=== PATIENT | female | born 1970 | race Two or more races ===

== ENCOUNTER 2024-10-22 20:13 | Emergency (ER) | payer MEDICAID, SELFPAY ==
--- NOTE | 2024-10-22 20:16 | EKG_ITS ---
[facility] Test Date: 2024-10-22 Pat Name: Adriana Santos Department: Room: - Gender: Female Survey Superintendent: : 1970 Requested By: Abundio Cedeno Order Number: [id number] Reading MD: Abundio Cedeno Measurements Intervals [place] Rate: 76 P: 50 MD: 141 QRS: -26 QRSD: 85 T: 47 QT: 366 QTc: 413 Interpretive Statements SINUS RHYTHM POSSIBLE ANTERIOR MYOCARDIAL INFARCTION , OF INDETERMINATE AGE [30 ms Q WAVE IN V3/V4, OR R < 0.2 mV IN V4] No previous ECG available for comparison /[id number]/[email or web address]/[id number].pdf
[2024-10-22 20:32] VITALS: BP 137/83; PULSE 78; RESP 16; TEMP 37; O2SAT 97; BMI 31.2
--- NOTE | 2024-10-22 21:15 | XR_ITS ---
Examination: PA chest single view TECHNIQUE:: PA chest single view upright Date and time: October 26, 20240 hours INDICATIONS: Chest pain and shortness of breath today FINDINGS: Normal heart size Accentuation of bronchovascular markings No lobar pneumonia or pulmonary edema Moderate osteopenia IMPRESSION: Basilar bronchitis
--- NOTE | 2024-10-22 21:16 | PD.EDRME ---
Rapid Medical Screening Exam [facility] Arrival date/time: 10/22/24 20:13 54F with history of HTN and DM presents to ED with 1 hour of LUQ/epigastric/lower chest pain and SOB. Patient is more concerned about SOB. Patient states she's had GERD before and this feels similar, but worse. Patient denies URI symptoms. Chief Complaint: Shortness of Breath/Dyspnea Vital signs: Vital Signs Temperature 98.6 F 10/22/24 20:32 Pulse Rate 78 10/22/24 20:32 Respiratory Rate 16 10/22/24 20:32 Blood Pressure 137/83 H 10/22/24 20:32 Pulse Oximetry (%) 97 10/22/24 20:32 Oxygen Delivery Method Room Air 10/22/24 20:32
[2024-10-22] MEDS: FAMOTIDINE 20 MG TABLET 40 MG PO (21:45)
[2024-10-22] MEDS: MG HYD/AL HYD/SIME (Maalox Reg) SUSP 30 ML UDC PO (21:45)
[2024-10-22 21:53] LABS: Collection Type, Urine Clean Catch
[2024-10-22 21:58] LABS: Basophils # (Auto) 0.0 Thou/mm3 (0.0-0.2); Basophils % (Auto) 1 % (0-2.5); Eosinophils # (Auto) 0.3 Thou/mm3 (0.0-0.5); Eosinophils % (Auto) 6 % (0-10); Hematocrit 46.1 % (36.0-46.0); Hemoglobin 15.3 g/dL (12.0-16.0); Immature Granulocytes Auto 0.01 Thou/mm3 (0.00-0.00); Lymphocytes # (Auto) 3.1 Thou/mm3 (1.0-4.8); Lymphocytes % (Auto) 54 % (10-50); Mean Corpuscular HGB Conc 33.2 g/dl (31.0-37.0); Mean Corpuscular Hemoglobin 28.1 pg (25.0-35.0); Mean Corpuscular Volume 85 fL (80-100); Monocytes # (Auto) 0.4 Thou/mm3 (0.0-0.8); Monocytes % (Auto) 8 % (0-12); Neutrophils # (Auto) 1.9 Thou/mm3 (1.8-7.7); Neutrophils % (Auto) 32 % (37-80); Nucleated Red Blood Cell # 0.00 Thou/mm3 (0.00-0.00); Nucleated Red Blood Cell % 0 /100 WBC (0); Platelet Count 239 Thou/mm3 (140-440); RDW Standard Deviation 39.5 fL (36.4-46.3); Red Blood Count 5.44 Miln/mm3 (4.00-5.20); White Blood Count 5.8 Thou/mm3 (3.6-11.0)
[2024-10-22 22:02] LABS: Bilirubin,Urine Negative (Negative); Blood,Urine Negative (Negative); Clarity,Urine Clear (Clear/Hazy); Color,Urine Colorless (Lt Yel-Yel); Culture Indicated,Urine Not Indicated; Glucose, Urine 4+ (Negative); Ketones,Urine Negative (Negative); Leukocyte Esterase,Urine Negative (Negative); Nitrite,Urine Negative (Negative); PH,Urine 7.5 (5.0-7.0); Protein,Urine Negative (Neg - Trace); RBC,Urine 1 /hpf (0-3); Specific Gravity,Urine 1.039 (1.001-1.035); Squamous Epithelial Cell,Urine 1 /hpf (0-5); Urobilinogen,Urine Negative mg/dL (0.0-1.0); WBC,Urine < 1 /hpf (0-5)
[2024-10-22 22:09] LABS: B-Type Natriuretic Peptide < 20 pg/mL (0-100)
[2024-10-22 22:10] LABS: Alanine Aminotransferase 27 U/L (10-49); Albumin, Serum 3.9 gm/dL (3.5-5.0); Albumin/Globulin Ratio 1.5 (1.2-2.2); Alkaline Phosphatase 192 U/L (46-116); Anion Gap 7 (7-16); Aspartate Amino Transferase 24 U/L (0-34); BUN/Creatinine Ratio 15 Ratio (12-20); Bilirubin,Total 0.5 mg/dL (0.3-1.2); Blood Urea Nitrogen 12 mg/dL (9-23); Calcium 9.6 mg/dL (8.3-10.6); Calcium (Corrected) 9.7 mg/dL (8.5-10.1); Carbon Dioxide 27.1 mMol/L (20.0-31.0); Chloride 102 mMol/L (98-107); Creatinine (Component) 0.8 mg/dL (0.6-1.3); Estimated Creatinine Clearance 73.2 mL/min (>60); Globulin 2.6 gm/dL (2.3-3.5); Glucose 371 mg/dL (74-106); Lipase 33 U/L (12-53); Magnesium 2.0 mg/dL (1.6-2.6); Osmolality,Calculated 286 (275-295); Potassium 4.2 mMol/L (3.4-5.1); Sodium 136 mMol/L (136-145); Total Protein 6.5 gm/dL (5.7-8.2); Troponin I < 0.002 ng/mL (0.0-0.045); eGFR > 60 See Note
[2024-10-22 22:29] LABS: INR 0.9 (0.9-1.3); Partial Thromboplastin Time 24.6 Seconds (22.0-36.0); Prothrombin Time 10.1 Seconds (9.0-12.2)
[2024-10-22 22:55] VITALS: BP 119/77; PULSE 71; RESP 16; TEMP 36.7; O2SAT 95
--- NOTE | 2024-10-23 00:08 | PD.EDABDPN ---
ED Abdominal Pain RME/HPI General Chief Complaint: Shortness of Breath/Dyspnea Stated complaint: SOB last Hour/abd pain/CP Arrival date/time: 10/22/24 20:13 RME / HPI RME / HPI narrative: 10/22/24 20:13 54F with history of HTN and DM presents to ED with 1 hour of LUQ/epigastric/lower chest pain and SOB. Patient is more concerned about SOB. Patient states she's had GERD before and this feels similar, but worse. Patient denies URI symptoms. DR. BOO MAIN ED EVALUATION: 54 y/o female with Hx of Type II DM and HTN presents with LUQ and epigastric abdominal pain with chest pain x 1 day. Patient also reports some cough. No other concerns or complaints expressed at this time. Related Data Previous Rx's ?Medication ?Instructions ?Recorded pantoprazole 40 mg tablet,delayed 40 mg PO QDAY #30 tabs 10/23/24 release (Protonix) Allergies Allergy/AdvReac Type Severity Reaction Status Date / Time No Known Allergies Allergy Verified 10/22/24 20:14 Review of Systems Review of Systems Systems Reviewed: All systems reviewed, normal except as documented Past Medical History Past Medical History CARDIAC: Positive Hypertension ENDOCRINE: Positive Diabetes Mellitus Type 2 Social History SMOKING STATUS: Never smoker ED Exam Narrative Physical exam: Generally patient is alert in no obvious distress heart regular rate and rhythm, lungs clear to auscultation equal bilaterally, abdomen soft bowel sounds present nondistended very mild epigastric abdominal tenderness without rebound. No right upper quadrant abdominal tenderness. Neurologic exam no focal motor or sensory deficits cranial nerves II through XII gross intact. Skin is cool and dry. Extremities show no edema. Course Course Course Narrative: CXR is ordered for determining the etiology of shortness of breath. Quality Measures none Orders Category Date Time Status EKG (ED ONLY) *Do not use* NOW Care 10/22/24 20:16 Completed EKG (ED Only) Stat Exams 10/22/24 20:16 Draft XR chest 1V portable Stat Exams 10/22/24 21:15 Completed B-Type Natriuretic Peptide Stat Lab 10/22/24 21:40 Completed CBC Stat Lab 10/22/24 21:40 Completed Comprehensive Metabolic Panel Stat Lab 10/22/24 21:40 Completed Lipase Stat Lab 10/22/24 21:40 Completed Magnesium Stat Lab 10/22/24 21:40 Completed Partial Thromboplastin Time Stat Lab 10/22/24 21:40 Completed Prothrombin Time with INR Stat Lab 10/22/24 21:40 Completed Troponin I Stat Lab 10/22/24 21:40 Completed UA, C/S IF [Urinalysis, C/S if Indicated] Stat Lab 10/22/24 21:34 Completed Aspirin Med 10/22/24 21:15 Discontinued 325 mg PO X1 ONE Famotidine [Pepcid] Med 10/22/24 21:15 Discontinued 40 mg PO X1 ONE mg Hyd/Al Hyd/Anshul Susp [Maalox Susp] Med 10/22/24 21:15 Discontinued 30 ml PO X1 ONE Vital Signs Vital signs: Vital Signs Temperature 98.6 F 10/22/24 20:32 Pulse Rate 78 10/22/24 20:32 Respiratory Rate 16 10/22/24 20:32 Blood Pressure 137/83 H 10/22/24 20:32 Pulse Oximetry (%) 97 10/22/24 20:32 Oxygen Delivery Method Room Air 10/22/24 20:32 Abdominal Pain MDM MDM Narrative MDM Narrative:: Scribe Attestation: I, Gregoria Wheat, am scribing for and in the presence of Dr. Boo. Provider Notation: Although this document has been carefully reviewed, there may still be some phonetic and other typographical errors.? These errors are purely grammatical due to imperfections in the software program and should not be construed in any way to? compromise the substance of the patient's medical care during this visit. I interpreted all labs. Cardiac workup is unremarkable. Troponin is not elevated. EKG is nonischemic. Chest x-ray is normal. Patient received a GI cocktail and Pepcid here in the emergency room with benefit. She will be discharged on Protonix to be taken as prescribed. Avoid hot spicy greasy fatty foods. Follow-up with her doctor. Return to ER as needed or if condition worsens. Patient data External records reviewed:: [facility] previous records (No prior ED records available for review.) Clinical information provided by:: patient Social determinants that could affect healthcare access:: none Patient has the following chronic illnesses:: HTN, Type II DM How is presenting disease/condition affected by chronic disease/condition?: exacerbated by Evaluation data The following diagnostics were reviewed and interpreted by me:: lab results, radiology exam(s) and EKG tracing(s) Lab and/or radiology exams considered but not ordered:: None Interpretation Summary: RADIOLOGY Chest X-Ray: FINDINGS: Normal heart size Accentuation of bronchovascular markings No lobar pneumonia or pulmonary edema Moderate osteopenia IMPRESSION: Basilar bronchitis Medications / Prescriptions Medications or Prescriptions considered but not ordered:: None Medication administrations:: Medication Administration History Discontinued Medications Al Hydrox/Mg Hydrox/Simethicone (Mg Hyd/Al Hyd/Anshul (Maalox Reg) Susp 30 Ml Udc) 30 ml PO X1 ONE Stop: 10/22/24 21:16 Last Admin: 10/22/24 21:45 Dose: 30 ml Documented By: OA Aspirin (Aspirin 325 Mg Tablet) 325 mg PO X1 ONE Stop: 10/22/24 21:16 Last Admin: 10/22/24 21:45 Dose: 325 mg Documented By: OA Famotidine (Famotidine 20 Mg Tablet) 40 mg PO X1 ONE Stop: 10/22/24 21:16 Last Admin: 10/22/24 21:45 Dose: 40 mg Documented By: OA See above Consultations Consultation(s) initiated? (list below): No Diagnosis Differential diagnosis abdominal pain: abdominal pain and other (GERD, Gastritis, Esophagitis) Most likely diagnosis given after review of the tests above:: none Admission Indicated Admission indicated?: not indicated Explain why admission is indicated or not indicated:: Patient does not meet admission criteria. Admission Request Was there a request for admission?: No Disposition Plan Disposition Plan: Discharge Discharge Attestation Discharge Attestation: The patient and all family members were given an opportunity to ask questions and understood the discharge instructions. Discharge instructions specifically effects, indications for sooner follow up or return to the emergency department, and the expected course of current diagnosis. Patient condition: Stable Discharge Plan Plan Patient Disposition: HOME (Self Care) Prescriptions/Referrals Prescriptions/Med Rec: New pantoprazole [Protonix] 40 mg tablet,delayed release (DR/EC) 40 mg PO QDAY Qty: 30 0RF Referrals: No Primary/Family,Physician [Primary Care Provider] - In 1 week Problem List Clinical Impression: Gastroesophageal reflux disease Patient/Caregiver Discharge Instructions Education Materials: ED GERD (Adult) Additional Instructions: Avoid hot spicy greasy fatty foods. Protonix as prescribed. Follow-up with your doctor. Return to ER as needed or if condition worsens. Print Language: Malaysian Stand Alone Forms: Sadie Award Info., Patient Portal Info Letter
[2024-10-23 00:28] VITALS: PULSE 69; RESP 19; TEMP 37; O2SAT 97
== END 2024-10-23 00:26 | disposition home or self-care (01) ==
PROVIDERS: Physician Assistant; Emergency Provider Emergency Medicine
DX: K21.9 Gastro-esophageal reflux disease without esophagitis (principal); E11.9 Type 2 diabetes mellitus without complications; I10 Essential (primary) hypertension
CPT/HCPCS: 36415; 71045; 80053; 81001; 83690; 83735; 83880; 84484; 85025; 85610; 85730; 93005; 99284; A9270